=== PATIENT | male | born 1975 | race Caucasian/White ===

== ENCOUNTER 2017-04-16 06:42 | Inpatient (IN) ==
--- NOTE | 2017-04-16 07:04 | Emergency Department Note ---
Disposition Clinical Impression: Acalculous cholecystitis Disposition: Admitted As Inpatient Condition: Fair Time of Disposition: 11:11 Abdominal Pain HPI - General Chief Complaint: ED Abdominal Pain Stated Complaint: upper abd pain Time Seen by Provider: 04/16/17 06:47 Source: patient Mode of arrival: ambulatory Limitations: no limitations Nursing Notes Reviewed: Yes Vital Signs Reviewed: Yes - History of Present Illness HPI Narrative: Alert and oriented nontoxic-appearing 41-year-old male presents for evaluation of epigastric abdominal pain that awoke him from sleep at approximately 2:00 AM. The patient does state a history of acid reflux for which he takes omeprazole on a daily basis. He describes his pain as sharp and burning in nature. He rates it a 10 out of 10 on a 10 point scale. He denies any alleviating factors. This pain is made worsened by lying in a supine position. He denies any accompanying fever, chills, nausea, vomiting, diarrhea, hematochezia, melena, or hematemesis. He states that this pain has happened before however he cannot recollect as to the circumstances surrounding previous episodes. He does state that he ate a greasy meal for dinner last night before bed which consisted of pizza. He does still have his gallbladder. Pt Subjective Complaint: abdominal pain Onset (ago): hour(s) (0200) Consistency: Worsening Location: epigastric Pain Severity: severe Pain Scale: 10 Quality: sharp, burning Radiation: back Migration to: no migration Improves with: nothing Worsens with: nothing Associated symptoms: Denies: nausea, vomiting, diarrhea, fever, chills, constipation, dysuria, hematemesis, hematochezia, melena, hematuria Treatments prior to arrival: prescription analgesics - Related Data Home Medications Medication Instructions Recorded Confirmed Atorvastatin [Lipitor] 40 mg PO HS 04/16/17 04/16/17 BuPROPion XL (24 HR) [Wellbutrin 150 mg PO DAILY 04/16/17 04/16/17 XL] Docusate [Colace] 100 mg PO BID 04/16/17 04/16/17 HYDROcodone/Acet 10/325 mg [[place] 1 tab PO QID 04/16/17 04/16/17 10-325 mg] Lisinopril-HCTZ 10-12.5 [Prinzide 1 tab PO DAILY 04/16/17 04/16/17 10-12.5] Meloxicam [Meloxicam] 1 tab PO DAILY 04/16/17 04/16/17 Metformin HCl [Glucophage] 1,000 mg PO BID 04/16/17 04/16/17 Omeprazole [PriLOSEC] 20 mg PO BIDAC 04/16/17 04/16/17 Allergies Allergy/AdvReac Type Severity Reaction Status Date / Time No Known Allergies Allergy Verified 04/16/17 06:43 All systems ED: reviewed and negative except as stated. Constitutional: Denies: fever, chills, weakness, weight change Eyes: Denies: eye pain, eye discharge, vision change ENT ED: Denies: ear pain, throat pain, dental pain, hearing loss, epistaxis, congestion, dysphagia Cardiovascular: Denies: chest pain, palpitations, dyspnea on exertion, edema, syncope Respiratory: Denies: cough, dyspnea, wheezes, hemoptysis, stridor Gastrointestinal: Reports: as per HPI, abdominal pain. Denies: nausea, vomiting , diarrhea, constipation, hematemesis, melena, hematochezia Genitourinary: Denies: urgency, dysuria, frequency, hematuria Musculoskeletal: Denies: back pain, neck pain, arthralgia, myalgia Integumentary: Denies: rash, abrasion, lesions Neurological: Denies: headache, weakness, numbness, paresthesias, confusion, abnormal gait, vertigo Psychiatric: Denies: anxiety, depression, suicidal thoughts, homicidal thoughts , auditory hallucinations, visual hallucinations Endocrine: Denies: fatigue Hematological/Lymphatic: Denies: easy bleeding, easy bruising Allergic/Immunologic: Denies: facial swelling, urticaria Abdominal Pain PMH - Past Medical History Medical history: Reports: diabetes Male Surgical History: Reports: no surgical history Psychiatric history: Reports: anxiety - Social History Smoking status: Current every day smoker Alcohol use: Reports: none Drug use: Reports: none Physical Exam - General Limitations: no limitations General appearance: alert, in no apparent distress - Head Head exam: atraumatic, normocephalic, normal inspection - Eye Eye exam: Present: normal appearance, PERRL, EOMI. Absent: nystagmus - ENT ENT exam: mucous membranes moist - Neck Neck exam: Present: normal inspection, full ROM - Chest Chest inspection: Present: normal inspection, symmetric chest wall rise - Respiratory Respiratory exam: Present: normal lung sounds bilaterally. Absent: respiratory distress, wheezes, stridor, accessory muscle use, prolonged expiratory phase - Cardiovascular Cardiovascular exam: Present: regular rate, normal rhythm, normal heart sounds - Abdominal Exam Abdominal exam: Present: soft, tenderness, guarding, normal bowel sounds, Ghosh 's sign. Absent: distention, rebound, rigidity, organomegaly, Rovsing's sign, tenderness at McBurney's Point, mass, pulsatile mass Abdominal tenderness: Present: LUQ, epigastrium, severe - Extremities Exam Extremities exam: Present: normal inspection, full ROM. Absent: tenderness, pedal edema - Neurological Exam Neurological exam: Present: alert, oriented X3 - Psychiatric Psychiatric exam: Present: normal affect, normal mood - Skin Skin exam: Present: warm, dry, intact, normal color Course Course Narrative: 1100: I spoke with Dr. obando, general surgeon director of vocational training. He recommends the patient be started on Zosyn, 3.375 g every 8 hours IV piggyback. He asks that the patient be admitted to the hospitalist service and that he will consult for further evaluation of his acalculous cholecystitis. 1117: I spoke with Dr. Rosado, hospitalist director of vocational training. Dr. Rosado has accepted the patient for admission under his services with general surgery consultation. I discussed this case with Dr. Garcia, ED attending. Dr. Garcia agrees with this plan. Vital Signs Temperature 97.5 F L 04/16/17 06:44 Pulse Rate 79 04/16/17 06:44 Respiratory Rate 18 04/16/17 06:44 Blood Pressure 142/86 04/16/17 06:44 O2 Sat by Pulse Oximetry 98 04/16/17 06:44 Temperature 97.5 F L 04/16/17 06:44 Pulse Rate 78 04/16/17 07:30 Respiratory Rate 18 04/16/17 07:30 Blood Pressure 135/82 04/16/17 07:30 O2 Sat by Pulse Oximetry 97 04/16/17 07:30 Oxygen Delivery Oxygen Delivery Room Air Abdominal Pain - Medical Records Medical records reviewed: Yes I reviewed the patient's medical records. - Lab Data Lab results reviewed: Yes I reviewed the patient's lab results. Lab results narrative: Laboratory Last Values WBC 17.5 K/mcL (4.3-11.1) H 04/16/17 07:15 RBC 5.25 M/mcL (4.19-5.50) 04/16/17 07:15 Hgb 15.7 g/dL (12.9-16.9) 04/16/17 07:15 Hct 47.2 % (37.5-50.1) 04/16/17 07:15 MCV 89.9 fL (83.0-100.0) 04/16/17 07:15 MCH 29.9 pg (28.0-33.3) 04/16/17 07:15 MCHC 33.3 g/dL (31.6-35.5) 04/16/17 07:15 RDW 12.5 % (11.5-14.5) 04/16/17 07:15 Plt Count 278 K/mcL (140-400) 04/16/17 07:15 MPV 9.7 fL (9.4-12.4) 04/16/17 07:15 Immature Gran % 0.4 % (0-4) 04/16/17 07:15 Seg Neutrophils % 84.0 % 04/16/17 07:15 Lymphocytes % 9.2 % 04/16/17 07:15 Monocytes % 4.4 % 04/16/17 07:15 Eosinophils % 1.7 % 04/16/17 07:15 Basophils % 0.3 % 04/16/17 07:15 Neutrophils # 14.7 K/mcL (1.6-8.9) H 04/16/17 07:15 Lymphocytes # 1.6 K/mcL (0.6-4.6) 04/16/17 07:15 Monocytes # 0.8 K/mcL (0.0-1.3) 04/16/17 07:15 Eosinophils # 0.3 K/mcL (0.0-0.6) 04/16/17 07:15 Basophils # 0.1 K/mcL (0.0-0.2) 04/16/17 07:15 PT 10.4 Seconds (9.4-12.1) 04/16/17 07:15 INR 1.0 04/16/17 07:15 APTT 29.5 Seconds (26.0-36.0) 04/16/17 07:15 D-Dimer 779 ng/mLFEU (0-500) H 04/16/17 07:15 Sodium 135 mEq/L (136-145) L 04/16/17 07:15 Potassium 4.0 mEq/L (3.5-5.1) 04/16/17 07:15 Chloride 103 mEq/L (98-107) 04/16/17 07:15 Carbon Dioxide 26 mEq/L (23-29) 04/16/17 07:15 BUN 13 mg/dL (6-20) 04/16/17 07:15 Creatinine 0.85 mg/dL (0.70-1.30) 04/16/17 07:15 Est GFR ( Amer) > 60 (> 60) 04/16/17 07:15 Est GFR (Non-Af Amer) > 60 (> 60) 04/16/17 07:15 BUN/Creatinine Ratio 15 (6-26) 04/16/17 07:15 Glucose 159 mg/dL (70-105) H 04/16/17 07:15 Calculated Osmolality 283 (280-300) 04/16/17 07:15 Lactic Acid 1.7 mmol/L (0.5-2.2) 04/16/17 07:15 Calcium 10.6 mg/dL (8.6-10.3) H 04/16/17 07:15 Total Bilirubin 0.4 mg/dL (0.3-1.0) 04/16/17 07:15 Direct Bilirubin 0.1 mg/dL (0.0-0.2) 04/16/17 07:15 Indirect Bilirubin 0.3 mg/dL (0.0-1.2) 04/16/17 07:15 AST 11 Units/L (13-39) L 04/16/17 07:15 ALT 47 Units/L (7-52) 04/16/17 07:15 Alkaline Phosphatase 112 Units/L (34-104) H 04/16/17 07:15 Troponin I < 0.03 ng/mL (< 0.04) 04/16/17 07:15 Serum Total Protein 7.1 g/dL (6.4-8.9) 04/16/17 07:15 Albumin 4.4 g/dL (3.5-5.7) 04/16/17 07:15 Globulin 2.7 g/dL (2.4-3.5) 04/16/17 07:15 Albumin/Globulin Ratio 1.6 (1.1-2.2) 04/16/17 07:15 Amylase 26 Units/L (29-103) L 04/16/17 07:15 Lipase 10 Units/L (11-82) L 04/16/17 07:15 Urine Color Yellow (Yellow) 04/16/17 07:03 Urine Clarity Clear (Clear) 04/16/17 07:03 Urine pH 6.5 pH Units (5.0-8.0) 04/16/17 07:03 Ur Specific [place] 1.030 (1.010-1.025) H 04/16/17 07:03 Urine Protein Negative mg/dL (Neg-Trace) 04/16/17 07:03 Urine Glucose (UA) Normal mg/dL (Normal) 04/16/17 07:03 Urine Ketones Negative mg/dL (Negative) 04/16/17 07:03 Urine Blood Negative (Negative) 04/16/17 07:03 Urine Nitrite Negative (Negative) 04/16/17 07:03 Urine Bilirubin Negative (Negative) 04/16/17 07:03 Urine Urobilinogen Normal mg/dL (Normal) 04/16/17 07:03 Ur Leukocyte Esterase Negative (Negative) 04/16/17 07:03 Ur Culture Indicated? NO (NO) 04/16/17 07:03 Result diagrams: 04/16/17 07:15 04/16/17 07:15 Lab Results 04/16/17 04/16/17 04/16/17 Range/Units 07:03 07:15 07:15 WBC 17.5 H (4.3-11.1) K/mcL RBC 5.25 (4.19-5.50) M/mcL Hgb 15.7 (12.9-16.9) g/dL Hct 47.2 (37.5-50.1) % MCV 89.9 (83.0-100.0) fL MCH 29.9 (28.0-33.3) pg MCHC 33.3 (31.6-35.5) g/dL RDW 12.5 (11.5-14.5) % Plt Count 278 (140-400) K/mcL MPV 9.7 (9.4-12.4) fL Immature Gran % 0.4 (0-4) % Seg Neutrophils % 84.0 % Lymphocytes % 9.2 % Monocytes % 4.4 % Eosinophils % 1.7 % Basophils % 0.3 % Neutrophils # 14.7 H (1.6-8.9) K/mcL Lymphocytes # 1.6 (0.6-4.6) K/mcL Monocytes # 0.8 (0.0-1.3) K/mcL Eosinophils # 0.3 (0.0-0.6) K/mcL Basophils # 0.1 (0.0-0.2) K/mcL PT 10.4 (9.4-12.1) Seconds INR 1.0 APTT 29.5 (26.0-36.0) Seconds D-Dimer 779 H (0-500) ng/mLFEU Sodium (136-145) mEq/L Potassium (3.5-5.1) mEq/L Chloride (98-107) mEq/L Carbon Dioxide (23-29) mEq/L BUN (6-20) mg/dL Creatinine (0.70-1.30) mg/dL Est GFR ( Amer) (> 60) Est GFR (Non-Af Amer) (> 60) BUN/Creatinine Ratio (6-26) Glucose (70-105) mg/dL Calculated Osmolality (280-300) Lactic Acid (0.5-2.2) mmol/L Calcium (8.6-10.3) mg/dL Total Bilirubin (0.3-1.0) mg/dL Direct Bilirubin (0.0-0.2) mg/dL Indirect Bilirubin (0.0-1.2) mg/dL AST (13-39) Units/L ALT (7-52) Units/L Alkaline Phosphatase (34-104) Units/L Troponin I (< 0.04) ng/mL Serum Total Protein (6.4-8.9) g/dL Albumin (3.5-5.7) g/dL Globulin (2.4-3.5) g/dL Albumin/Globulin Ratio (1.1-2.2) Amylase (29-103) Units/L Lipase (11-82) Units/L Urine Color Yellow (Yellow) Urine Clarity Clear (Clear) Urine pH 6.5 (5.0-8.0) pH Units Ur Specific [place] 1.030 H (1.010-1.025) Urine Protein Negative (Neg-Trace) mg/dL Urine Glucose (UA) Normal (Normal) mg/dL Urine Ketones Negative (Negative) mg/dL Urine Blood Negative (Negative) Urine Nitrite Negative (Negative) Urine Bilirubin Negative (Negative) Urine Urobilinogen Normal (Normal) mg/dL Ur Leukocyte Esterase Negative (Negative) Ur Culture Indicated? NO (NO) 04/16/17 04/16/17 04/16/17 Range/Units 07:15 07:15 07:15 WBC (4.3-11.1) K/mcL RBC (4.19-5.50) M/mcL Hgb (12.9-16.9) g/dL Hct (37.5-50.1) % MCV (83.0-100.0) fL MCH (28.0-33.3) pg MCHC (31.6-35.5) g/dL RDW (11.5-14.5) % Plt Count (140-400) K/mcL MPV (9.4-12.4) fL Immature Gran % (0-4) % Seg Neutrophils % % Lymphocytes % % Monocytes % % Eosinophils % % Basophils % % Neutrophils # (1.6-8.9) K/mcL Lymphocytes # (0.6-4.6) K/mcL Monocytes # (0.0-1.3) K/mcL Eosinophils # (0.0-0.6) K/mcL Basophils # (0.0-0.2) K/mcL PT (9.4-12.1) Seconds INR APTT (26.0-36.0) Seconds D-Dimer (0-500) ng/mLFEU Sodium 135 L (136-145) mEq/L Potassium 4.0 (3.5-5.1) mEq/L Chloride 103 (98-107) mEq/L Carbon Dioxide 26 (23-29) mEq/L BUN 13 (6-20) mg/dL Creatinine 0.85 (0.70-1.30) mg/dL Est GFR ( Amer) > 60 (> 60) Est GFR (Non-Af Amer) > 60 (> 60) BUN/Creatinine Ratio 15 (6-26) Glucose 159 H (70-105) mg/dL Calculated Osmolality 283 (280-300) Lactic Acid 1.7 (0.5-2.2) mmol/L Calcium 10.6 H (8.6-10.3) mg/dL Total Bilirubin 0.4 (0.3-1.0) mg/dL Direct Bilirubin 0.1 (0.0-0.2) mg/dL Indirect Bilirubin 0.3 (0.0-1.2) mg/dL AST 11 L (13-39) Units/L ALT 47 (7-52) Units/L Alkaline Phosphatase 112 H (34-104) Units/L Troponin I < 0.03 (< 0.04) ng/mL Serum Total Protein 7.1 (6.4-8.9) g/dL Albumin 4.4 (3.5-5.7) g/dL Globulin 2.7 (2.4-3.5) g/dL Albumin/Globulin Ratio 1.6 (1.1-2.2) Amylase 26 L (29-103) Units/L Lipase 10 L (11-82) Units/L Urine Color (Yellow) Urine Clarity (Clear) Urine pH (5.0-8.0) pH Units Ur Specific [place] (1.010-1.025) Urine Protein (Neg-Trace) mg/dL Urine Glucose (UA) (Normal) mg/dL Urine Ketones (Negative) mg/dL Urine Blood (Negative) Urine Nitrite (Negative) Urine Bilirubin (Negative) Urine Urobilinogen (Normal) mg/dL Ur Leukocyte Esterase (Negative) Ur Culture Indicated? (NO) - Radiology Data Radiology results reviewed: Yes I reviewed the patient's radiology results. Laboratory Last Values WBC 17.5 K/mcL (4.3-11.1) H 04/16/17 07:15 RBC 5.25 M/mcL (4.19-5.50) 04/16/17 07:15 Hgb 15.7 g/dL (12.9-16.9) 04/16/17 07:15 Hct 47.2 % (37.5-50.1) 04/16/17 07:15 MCV 89.9 fL (83.0-100.0) 04/16/17 07:15 MCH 29.9 pg (28.0-33.3) 04/16/17 07:15 MCHC 33.3 g/dL (31.6-35.5) 04/16/17 07:15 RDW 12.5 % (11.5-14.5) 04/16/17 07:15 Plt Count 278 K/mcL (140-400) 04/16/17 07:15 MPV 9.7 fL (9.4-12.4) 04/16/17 07:15 Immature Gran % 0.4 % (0-4) 04/16/17 07:15 Seg Neutrophils % 84.0 % 04/16/17 07:15 Lymphocytes % 9.2 % 04/16/17 07:15 Monocytes % 4.4 % 04/16/17 07:15 Eosinophils % 1.7 % 04/16/17 07:15 Basophils % 0.3 % 04/16/17 07:15 Neutrophils # 14.7 K/mcL (1.6-8.9) H 04/16/17 07:15 Lymphocytes # 1.6 K/mcL (0.6-4.6) 04/16/17 07:15 Monocytes # 0.8 K/mcL (0.0-1.3) 04/16/17 07:15 Eosinophils # 0.3 K/mcL (0.0-0.6) 04/16/17 07:15 Basophils # 0.1 K/mcL (0.0-0.2) 04/16/17 07:15 PT 10.4 Seconds (9.4-12.1) 04/16/17 07:15 INR 1.0 04/16/17 07:15 APTT 29.5 Seconds (26.0-36.0) 04/16/17 07:15 D-Dimer 779 ng/mLFEU (0-500) H 04/16/17 07:15 Sodium 135 mEq/L (136-145) L 04/16/17 07:15 Potassium 4.0 mEq/L (3.5-5.1) 04/16/17 07:15 Chloride 103 mEq/L (98-107) 04/16/17 07:15 Carbon Dioxide 26 mEq/L (23-29) 04/16/17 07:15 BUN 13 mg/dL (6-20) 04/16/17 07:15 Creatinine 0.85 mg/dL (0.70-1.30) 04/16/17 07:15 Est GFR ( Amer) > 60 (> 60) 04/16/17 07:15 Est GFR (Non-Af Amer) > 60 (> 60) 04/16/17 07:15 BUN/Creatinine Ratio 15 (6-26) 04/16/17 07:15 Glucose 159 mg/dL (70-105) H 04/16/17 07:15 Calculated Osmolality 283 (280-300) 04/16/17 07:15 Lactic Acid 1.7 mmol/L (0.5-2.2) 04/16/17 07:15 Calcium 10.6 mg/dL (8.6-10.3) H 04/16/17 07:15 Total Bilirubin 0.4 mg/dL (0.3-1.0) 04/16/17 07:15 Direct Bilirubin 0.1 mg/dL (0.0-0.2) 04/16/17 07:15 Indirect Bilirubin 0.3 mg/dL (0.0-1.2) 04/16/17 07:15 AST 11 Units/L (13-39) L 04/16/17 07:15 ALT 47 Units/L (7-52) 04/16/17 07:15 Alkaline Phosphatase 112 Units/L (34-104) H 04/16/17 07:15 Troponin I < 0.03 ng/mL (< 0.04) 04/16/17 07:15 Serum Total Protein 7.1 g/dL (6.4-8.9) 04/16/17 07:15 Albumin 4.4 g/dL (3.5-5.7) 04/16/17 07:15 Globulin 2.7 g/dL (2.4-3.5) 04/16/17 07:15 Albumin/Globulin Ratio 1.6 (1.1-2.2) 04/16/17 07:15 Amylase 26 Units/L (29-103) L 04/16/17 07:15 Lipase 10 Units/L (11-82) L 04/16/17 07:15 Urine Color Yellow (Yellow) 04/16/17 07:03 Urine Clarity Clear (Clear) 04/16/17 07:03 Urine pH 6.5 pH Units (5.0-8.0) 04/16/17 07:03 Ur Specific [place] 1.030 (1.010-1.025) H 01/18/18 07:03 Urine Protein Negative mg/dL (Neg-Trace) 04/16/17 07:03 Urine Glucose (UA) Normal mg/dL (Normal) 04/16/17 07:03 Urine Ketones Negative mg/dL (Negative) 04/16/17 07:03 Urine Blood Negative (Negative) 04/16/17 07:03 Urine Nitrite Negative (Negative) 04/16/17 07:03 Urine Bilirubin Negative (Negative) 04/16/17 07:03 Urine Urobilinogen Normal mg/dL (Normal) 04/16/17 07:03 Ur Leukocyte Esterase Negative (Negative) 04/16/17 07:03 Ur Culture Indicated? NO (NO) 04/16/17 07:03 - EKG Data EKG attestation: Yes I reviewed and interpreted this EKG. EKG results narrative: EKG reviewed by Dr. Garcia as well. EKG shows a sinus rhythm with borderline left axis deviation and possible left ventricular hypertrophy at a rate of 77 beats per minute. OH interval 147, QRS duration 98, QT/QTc interval 343/375. No ectopy noted. No STEMI. No significant changes when compared to an EKG dated from 09/17/12. Attestation Statement - Attestation Attestation: 41-year-old male presents to the view his right upper quadrant abdominal pain. He will this morning with pain in his upper abdomen which is been persistent. No associated fever. Does complain of nausea. No chest pain or dyspnea. He has had similar but less intense pain in the past. Generally well-appearing male in no apparent physiologic distress. He is awake , alert and talkative. Oropharynx clear, mucous membranes are moist. Chest is clear to auscultation bilaterally. Abdomen soft, bowel sounds normal. Tenderness throughout the epigastrium and right upper quadrant. Extremities warm and dry without edema. CT of the abdomen was negative for any acute process. Her ultrasound was consistent with acalculous cholecystitis. Moderate leukocytosis with white count 17,000. Case was discussed with on-call surgery who recommended IV Zosyn and admission to the medical service.
[2017-04-16] MEDS ORDERED: *HR* Morphine 2 MG/ML SYRINGE IVP ONE ×2 (07:18→11:00)
[2017-04-16 07:26] LABS: Bilirubin,Urine Negative (Negative); Blood,Urine Negative (Negative); Clarity,Urine Clear (Clear); Color,Urine Yellow (Yellow); Glucose,Urine (UA) Normal (Normal); Ketones,Urine Negative (Negative); Leukocyte Esterase,Urine Negative (Negative); Nitrite,Urine Negative (Negative); PH,Urine 6.5 pH Units (5.0-8.0); Protein,Urine Negative (Neg-Trace); Urobilinogen,Urine Normal (Normal)
[2017-04-16 07:27] LABS: Basophils # 0.1 K/mcL (0.0-0.2); Basophils % 0.3 %; Eosinophils # 0.3 K/mcL (0.0-0.6); Eosinophils % 1.7 %; Hematocrit 47.2 % (37.5-50.1); Hemoglobin 15.7 g/dL (12.9-16.9); Immature Granulocytes % 0.4 % (0-4); Lymphocytes # 1.6 K/mcL (0.6-4.6); Lymphocytes % 9.2 %; Mean Corpuscular HGB Conc 33.3 g/dL (31.6-35.5); Mean Corpuscular Hemoglobin 29.9 pg (28.0-33.3); Mean Corpuscular Volume 89.9 fL (83.0-100.0); Mean Platelet Volume 9.7 fL (9.4-12.4); Monocytes # 0.8 K/mcL (0.0-1.3); Monocytes % 4.4 %; Neutrophils # 14.7 K/mcL (1.6-8.9); Platelet Count 278 K/mcL (140-400); Red Blood Count 5.25 M/mcL (4.19-5.50); Red Cell Distribution Width 12.5 % (11.5-14.5)
[2017-04-16 07:33] LABS: Prothrombin Time 10.4 Seconds (9.4-12.1)
[2017-04-16 07:36] LABS: Activated Partial Thrombo Time 29.5 Seconds (26.0-36.0)
[2017-04-16 07:56] LABS: Alanine Aminotransferase 47 Units/L (7-52); Albumin 4.4 g/dL (3.5-5.7); Albumin/Globulin Ratio 1.6 (1.1-2.2); Alkaline Phosphatase 112 Units/L (34-104); Amylase 26 Units/L (29-103); Aspartate Amino Transferase 11 Units/L (13-39); BUN/Creatinine Ratio 15 (6-26); Bilirubin,Direct 0.1 mg/dL (0.0-0.2); Bilirubin,Indirect 0.3 mg/dL (0.0-1.2); Bilirubin,Total 0.4 mg/dL (0.3-1.0); Blood Urea Nitrogen 13 mg/dL (6-20); Calcium 10.6 mg/dL (8.6-10.3); Carbon Dioxide 26 mEq/L (23-29); Chloride 103 mEq/L (98-107); Globulin 2.7 g/dL (2.4-3.5); Glucose 159 mg/dL (70-105); Lipase 10 Units/L (11-82); Osmolality,Calculated 283 (280-300); Sodium 135 mEq/L (136-145); Total Protein 7.1 g/dL (6.4-8.9); eGFR For African Americans > 60 (> 60); eGFR For Non-African Americans > 60 (> 60)
[2017-04-16] MEDS ORDERED: Piperacillin/Tazobactam 3.375 GM in Water for inj. (sterile) 20 ML 20 ML IVP SCH (11:00)
[2017-04-16] MEDS ORDERED: 0.9 % Sodium Chloride 1,000 ML IVC ONE (11:02)
[2017-04-16] MEDS ORDERED: Water for inj. (sterile) 10 ML IV ONE (11:27)
[2017-04-16] MEDS: Nicotine 21 MG PATCH.TD24 TD SCH (12:23)
--- NOTE | 2017-04-16 12:44 | Event Note ---
Date of Encounter: 04/16/17 Time of Encounter: 12:42 Patient seen and examined with nurse practitioner. Presentation suggestive of biliary colic. There is some thickening of gall bladder wall and some pericholecystic fluid on imaging. Will get HIDA scan to confirm. Appreciates surgery input. Surgery team would like patient to be started on antibiotics and will follow that
[2017-04-16] MEDS ORDERED: Acetaminophen 325 MG TABLET PO PRN (13:24)
[2017-04-16] MEDS ORDERED: Naloxone 0.4 MG/ML INJ IVP PRN (13:24)
[2017-04-16] MEDS ORDERED: Ondansetron 4 MG/2 ML VIAL IVP PRN (13:24)
[2017-04-16] MEDS ORDERED: Dextrose Gel 15 GM/37.5 ML TUBE PO PRN ×2 (13:38)
[2017-04-16] MEDS ORDERED: D5% in Water 1,000 ML IVC PRN (13:38)
[2017-04-16] MEDS ORDERED: *HR* Dextrose 50 % in Water (Syg) 50 ML SYRINGE IVP PRN (13:38)
--- NOTE | 2017-04-16 13:48 | Internal Med History&Physical ---
Date of Encounter: 04/16/17 Time of Encounter: 13:00 Assessment and Plan (1) Acalculous cholecystitis Current visit: Yes Status: Acute Patient had sudden onset of epigastric pain radiating to right upper quadrant tenderness at McBurney's point, some leukocytosis at 17.5, all bladder ultrasound demonstrates thickening and pericolic fluid we will obtain a HIDA scan to confirm Surgery has been consult did contacted per ER physician-Dr. 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 Owen is a 41 year old male past medical history hypertension hyperlipidemia diabetes,GERD according to the patient he has been in his usual state of health when approximately 2 AM this morning he awoke with sudden onset of severe stabbing sharp burning epigastric pain which radiated to his right upper quadrant. He attempted to take some antacids thinking it was gas related without any relief the pain was made worse when he is lying down. He denies any associated symptoms of fevers chills nausea vomiting diarrhea hematochezia melena or hematemesis. Patient did consume a greasy meal before going to bed which consisted of pizza. He does have his gallbladder, he denies any recent history of similar events. He presented to the ER with the above complaints not work was obtained which did show some leukocytosis CT of gallbladder did reveal nonspecific gallbladder wall thickening and trace and trace pericholecystic fluid. ER physician did speak with surgeon who advised initiating antibiotics and would see patient up on consult. Patient has been admitted for further workup and evaluation. Presently patient is hemodynamically stable and denies any pain at this time. Did review this case with Dr. Rosado who agree with plan Past Med Surg Social Fam HX - Past Medical History Medical history: arthritis, diabetes, GERD, hyperlipidemia, hypertension Psychiatric history: anxiety - Social History Smoking Status: Current every day smoker Packs per day: 1-2 Smokeless Tobacco Status: No Alcohol use: none Drug use: marijuana - Family History Mother Hx Family Medical Disorders: Yes (fibromyalgia) Brother Living Status: Hx Family Cardiac Disorders: Yes ([place]) Hx Family Medical Disorders: Yes ("blood disorder") Internal Medicine - H&P: Meds Atorvastatin [Lipitor] 40 mg PO HS 04/16/17 [History] BuPROPion XL (24 HR) [Wellbutrin XL] 150 mg PO DAILY 04/16/17 [History] Docusate [Colace] 100 mg PO BID 04/16/17 [History] HYDROcodone/Acet 10/325 mg [[place] 10-325 mg] 1 tab PO QID 04/16/17 [History] Lisinopril-HCTZ 10-12.5 [Prinzide 10-12.5] 1 tab PO DAILY 04/16/17 [History] Meloxicam [Meloxicam] 1 tab PO DAILY 04/16/17 [History] Metformin HCl [Glucophage] 1,000 mg PO BID 04/16/17 [History] Omeprazole [PriLOSEC] 20 mg PO BIDAC 04/16/17 [History] 3 Allergy/AdvReac Type Severity Reaction Status Date / Time No Known Allergies Allergy Verified 04/16/17 06:43 All Systems PM: A 10-system review of systems was performed and is negative for pertinent findings except as documented above in the HPI. - Constitutional Constitutional: no chills, no fever(s), no night sweats - EENT Eyes: no change in vision, no discharge, no pain, no photophobia Nose, mouth and throat: no dysphagia, no nasal discharge, no neck pain, no sore throat - Cardiovascular Cardiovascular ROS IM: no chest pain, no diaphoresis, no dyspnea, no lightheadedness, no palpitations, no syncope - Respiratory Respiratory: no cough, no dyspnea, no wheezing, no excessive phlegm production - Gastrointestinal Gastrointestinal: abdominal pain, nausea - Musculoskeletal Musculoskeletal ROS IM: no numbness, no tingling - Integumentary Integumentary IM: no rash, no unusual bruising - Neurological Neurological ROS: no confusion, no convulsions, no focal weakness, no numbness, no tingling, no tremor(s) - Hematologic/Lymphatic Hematologic/Lymphatic: no easy bruising - Constitutional Vitals: Temp Pulse Resp BP Pulse Ox 97.5 F L 78 18 135/82 97 04/16/17 06:44 04/16/17 07:30 04/16/17 07:30 04/16/17 07:30 04/16/17 12:45 General appearance: Present: A&O X 3 - Head Head exam: Present: atraumatic, normocephalic - Eye Eye exam: Present: PERRL, conjuntiva pink, sclera anicteric Pupils: Present: PERRL - Neck Neck exam general surgery: Present: supple, trachea midline. Absent: lymphadenopathy - Respiratory Respiratory exam: Present: CTAB. Absent: accessory muscle use, rales, rhonchi, wheezes - Cardiovascular Cardiovascular exam: Present: RRR, +S1, +S2. Absent: diastolic murmur, gallop, rubs, systolic murmur - GI/Abdominal GI/Abdominal exam: Present: normal bowel sounds, soft, tenderness, no peritoneal signs. Absent: distended - Expanded GI/Abdominal Exam GI/Abdominal exam expanded: Present: tenderness at McBurney's Point - Extremities Exam Extremities exam: Present: warm, radial pulses palpable and symmetrical. Absent : calf tenderness, cyanotic, pedal edema - Neurological Exam Neurological exam: Present: CN II-XII intact, oriented X3, no focal deficits. Absent: pronater drift, facial droop, speech deficit - Skin Skin exam: Present: dry, intact Internal Med - H&P Results - Labs CBC & Chem 7: 04/16/17 07:15 04/16/17 07:15 - Diagnostic Studies Other Images Additional comments: Abdomen/Pelvis CT 04/16/17 06:53 IMPRESSION: 1. Distended gallbladder with mild gallbladder wall thickening. Cholecystitis is not excluded. Consider correlation with right upper quadrant ultrasound if clinically indicated. 2. Nonobstructing 3 mm stone involving the lower pole of the left kidney. 3. Colonic diverticulosis. D/ / 04/16/2017 09:14:43 Luis Manuel Stevenson MD / [place] Interpreting Provider: Luis Manuel Stevenson MD Chest CTA 04/16/17 07:39 IMPRESSION: 1. No CT evidence of a pulmonary embolism. 2. No acute abnormality of the thoracic aorta. 3. Mild dependent atelectasis within the bilateral lower lobes without acute intrapulmonary findings. 4. There is a 5 mm noncalcified nodule within the right lower lobe. While this likely reflects a benign granuloma, further follow-up of this nodule is advised below. RECOMMENDATIONS: Fleischner Society guidelines for follow-up and management of incidentally detected pulmonary nodules: Single Solid Nodule: Nodule size less than 6 mm In a low-risk patient, no routine follow-up. In a high-risk patient, optional CT at 12 months. - Low risk patients include individuals with minimal or absent history of smoking and other known risk factors. - High risk patients include individuals with a history or smoking or known risk factors. Radiology 2017 http://pubs.rsna.org/doi/full/10.1148/[email or web address] D/ / 04/16/2017 09:15:43 Pro Britt MD / [place] Interpreting Provider: Pro Britt MD Gallbladder Ultrasound 04/16/17 09:14 IMPRESSION: 1. Nonspecific gallbladder wall thickening and trace pericholecystic fluid could be related to acalculous cholecystitis. Correlation with HIDA scan may be useful. 2. Hepatic steatosis. D/ / Reinier Godoy / Reinier Godoy Interpreting Provider: Reinier Godoy
[2017-04-16] MEDS: *HR* Morphine 2 MG/ML SYRINGE IVP PRN ×2 (14:47→20:23)
[2017-04-16] MEDS: 0.9 % Sodium Chloride 1,000 ML IVC SCH (16:41)
[2017-04-16] MEDS: Insulin LISPRO 300 UNITS/3 ML VIAL SQ SCH (19:22)
--- NOTE | 2017-04-16 19:35 | General Surgery Consult Note ---
Date of Encounter: 04/16/17 Time of Encounter: 18:20 History of Present Illness Reason for consult: abdominal pain (acute cholecystitis) Requesting physician: Xavi Gurrola History of present illness: 41-year-old male referred for furthre surgical evaluation after presenting today to [facility] ED with abrupt onset epigastric abdominal pain that awakened him from sleep approximately 0200 hrs. this morning. The pain apparently has progressed in severity and the patient is complaining of right upper quadrant abdominal tenderness along with the epigastric tenderness. The patient induced vomiting without symptomatic relief. He presents to the emergency department for further evaluation and treatment. Patient gives a history of gastroesophageal reflux disease but this is "new pain". Patient describes several previous episodes of similar pain but not as severe. Not associated with fevers, chills, jaundice, nausea or vomiting. Past medical history: Diabetes; generalized anxiety; chronic back pain Surgical history: Tonsillectomy in the remote past Allergies: No known drug allergies Medications: Atorvastatin 40 mg by mouth daily at bedtime Bupropion 150 mg by mouth daily Docusate 100 mg by mouth twice a day Hydrocodone 10/325 one by mouth 4 times a day for back pain Lisinopril with hydrochlorothiazide 10/12.5 mg 1 by mouth daily Meloxicam 1 by mouth daily Metformin 1000 mg by mouth twice a day Omeprazole 20 mg by mouth twice a day Social history: Patient is , lives at home with his spouse and children; patient describes himself as disabled. The patient has smoked since the age of 19 (23 years) proximal one pack per day; he admits to rare alcoholic intake, denies any illicit drug use Physical exam: Appropriate male resting comfortably in his hospital bed. He appears to be in no acute distress. He is 2.01 m tall, 136.08 kg, BMI 33.8 The patient is afebrile, 98.9; pulse 78-103, respirations 18-21, blood pressure 127/78 to 135/82 Skin: Warm, no obvious jaundice Lungs: Clear to auscultation, no obvious pain and deep inspiration Cardiac: Rate on my exam was regular without obvious murmurs Abdomen: Soft with tenderness right upper quadrant. Gallbladder was not palpable; no detectable hepatosplenomegaly. No rebound Hypoactive bowel sounds Extremities: Without clubbing, cyanosis, or edema Laboratories: Leukocytosis of 17.5, hemoglobin 15.7 with hematocrit 47.2; differential notable for neutrophilia of 14.7% Sodium 135, other electrolytes, BUN, creatinine within normal limits. Alkaline phosphatase elevated at 112; bilirubin 0.4, AST 11, ALT 47. Amylase 26, lipase 10. CT and ultrasound gallbladder were personally reviewed with [facility]. CT demonstrated mild gallbladder wall thickening without identified calcified stones. The gallbladder was mildly distended. Moderate colonic diverticulosis noted most prominently involving the descending and sigmoid colon. No acute diverticulitis identified. Moderate multilevel degenerative disc disease and facet joint osteoarthritis throughout the lumbar spine as well as lower thoracic spine. Moderate osteoarthritis involving both hips. Sonogram of the gallbladder demonstrated increased hepatic echogenicity consistent with hepatic steatosis; the gallbladder did not appear distended but pericholecystic fluid with nonspecific wall thickening was identified. No definite stones were identified. The sonographic Ghosh sign was described as negative. Common bile duct measured thin normal limits, 3-4 mm. Impression: Clinical and radiologic findings are consistent with acute cholecystitis. Wall thickening and pericholecystic fluid without associated cholelithiasis is somewhat unusual but my review of the imaging with [facility] corroborated the radiologic findings which corrolate to the physical findings. The patient is currently comfortable using morphine for pain control. The patient was in NAD at the time of my exam but tender in the RUQ. I have recommended cholecystectomy if the patient's symptoms persist through the night. The patient is a reasonable candidate for laparoscopic cholecystectomy but understands that an open cholecystectomy may become necessary. Risks of surgery include hemorrhage, infection, intra-abdominal abscess, bile leak, injury to adjacent ducts, vessels, organs, or bowel. Postcholecystectomy diarrhea may develop. The patient may also continue to be symptomatic despite cholecystectomy. The patient expressed understanding and is willing to proceed with cholecystectomy if his symptoms persist through the night. Thank you for this consultation. I will follow along with you. Past Med Surg Social Fam HX - Past Medical History Medical history: arthritis, diabetes, GERD, hyperlipidemia, hypertension Psychiatric history: anxiety - Social History Smoking Status: Current every day smoker Packs per day: 1-2 Smokeless Tobacco Status: No Alcohol use: none Drug use: marijuana - Family History Mother Hx Family Medical Disorders: Yes (fibromyalgia) Brother Living Status: Hx Family Cardiac Disorders: Yes ([place]) Hx Family Medical Disorders: Yes ("blood disorder") Medications and Allergies Atorvastatin [Lipitor] 40 mg PO HS 04/16/17 [History] BuPROPion XL (24 HR) [Wellbutrin XL] 150 mg PO DAILY 04/16/17 [History] Docusate [Colace] 100 mg PO BID 04/16/17 [History] HYDROcodone/Acet 10/325 mg [[place] 10-325 mg] 1 tab PO QID 04/16/17 [History] Lisinopril-HCTZ 10-12.5 [Prinzide 10-12.5] 1 tab PO DAILY 04/16/17 [History] Meloxicam [Meloxicam] 1 tab PO DAILY 04/16/17 [History] Metformin HCl [Glucophage] 1,000 mg PO BID 04/16/17 [History] Omeprazole [PriLOSEC] 20 mg PO BIDAC 04/16/17 [History] 3 Allergy/AdvReac Type Severity Reaction Status Date / Time No Known Allergies Allergy Verified 04/16/17 06:43 Review of Systems All systems PM: A 10-system review of systems was performed and is negative for pertinent findings except as documented above in the HPI. General Surgery Exam Initial Vital Signs Temp Pulse Resp BP Pulse Ox 97.5 F L 79 18 142/86 98 04/16/17 06:44 04/16/17 06:44 04/16/17 06:44 04/16/17 06:44 04/16/17 06:44 Exam Initial Vital Signs Temp Pulse Resp BP Pulse Ox 97.5 F L 79 18 142/86 98 04/16/17 06:44 04/16/17 06:44 04/16/17 06:44 04/16/17 06:44 04/16/17 06:44 Results - Labs 04/16/17 07:15 04/16/17 07:15 Abnormal lab results WBC 17.5 K/mcL (4.3-11.1) H 04/16/17 07:15 Neutrophils # 14.7 K/mcL (1.6-8.9) H 04/16/17 07:15 D-Dimer 779 ng/mLFEU (0-500) H 04/16/17 07:15 Sodium 135 mEq/L (136-145) L 04/16/17 07:15 Glucose 159 mg/dL (70-105) H 04/16/17 07:15 Calcium 10.6 mg/dL (8.6-10.3) H 04/16/17 07:15 AST 11 Units/L (13-39) L 04/16/17 07:15 Alkaline Phosphatase 112 Units/L (34-104) H 04/16/17 07:15 Amylase 26 Units/L (29-103) L 04/16/17 07:15 Lipase 10 Units/L (11-82) L 04/16/17 07:15 Ur Specific [place] 1.030 (1.010-1.025) H 04/16/17 07:03 All other labs normal. Consult Discharge Plan - Plan Referrals: Dalton Marte MD [Primary Care Provider] -
--- NOTE | 2017-04-16 19:49 | Anesthesia Evaluation PreOp ---
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: Other (anxiety, chronic back pain) Other Medical History: Diabetes Type II (oral medications), GERD Anesthesia History: Past Anesthesia (tonsillectomy) Alcohol Use: none Drug use: marijuana Medications and Allergies Atorvastatin [Lipitor] 40 mg PO HS 04/16/17 [History] BuPROPion XL (24 HR) [Wellbutrin XL] 150 mg PO DAILY 04/16/17 [History] Docusate [Colace] 100 mg PO BID 04/16/17 [History] HYDROcodone/Acet 10/325 mg [[place] 10-325 mg] 1 tab PO QID 04/16/17 [History] Lisinopril-HCTZ 10-12.5 [Prinzide 10-12.5] 1 tab PO DAILY 04/16/17 [History] Meloxicam [Meloxicam] 1 tab PO DAILY 04/16/17 [History] Metformin HCl [Glucophage] 1,000 mg PO BID 04/16/17 [History] Omeprazole [PriLOSEC] 20 mg PO BIDAC 04/16/17 [History] 3 Allergy/AdvReac Type Severity Reaction Status Date / Time No Known Allergies Allergy Verified 04/16/17 06:43 - Meds/Allergy Pre-op Review Medications Reviewed: Yes Allergies Reviewed: Yes Beta Blockers on Current Med List: No Anesthesia Results - Labs 04/17/17 06:03 04/17/17 06:03 - Imaging EKG: report reviewed, image reviewed (SR; borderline LAD; poss LVH) Anesthesia Exam Last Vital Signs Temp 98.9 F 04/16/17 16:13 Pulse 103 04/16/17 16:13 Resp 21 04/16/17 16:13 BP 127/78 04/16/17 16:13 Pulse Ox 97 04/16/17 16:13 Weight: 136 kg - HEENT Pupil (Motor): Pupils equal, EOMI Mallampati: III Teeth: Normal Oral Opening: Greater than 3 - SHEET HANGER LOC: Oriented - Cardiac Rhythm: Regular - Pulmonary Breath Sounds: bilateral Clear Respiratory Effort: Symmetrical Anesthesia Assess/Plan ASA Score: 3 Anesthetic Plan: General Monitoring Plan: Standard Monitors Recovery Plan: PACU
[2017-04-16] MEDS: Piperacillin/Tazobactam 3.375 GM/200 ML BAG IVPB SCH (22:05)
[2017-04-17] MEDS: *HR* Morphine 2 MG/ML SYRINGE IVP PRN ×4 (00:27→13:31)
[2017-04-17] MEDS: 0.9 % Sodium Chloride 1,000 ML IVC SCH (00:31)
[2017-04-17] MEDS: Insulin LISPRO 300 UNITS/3 ML VIAL SQ SCH ×3 (00:34→13:32)
[2017-04-17] MEDS: Piperacillin/Tazobactam 3.375 GM/200 ML BAG IVPB SCH (05:15)
[2017-04-17] MEDS ORDERED: *HR* Enoxaparin 40 MG/0.4 ML SYRINGE SQ SCH (06:00)
[2017-04-17 06:19] LABS: Basophils % 0.3 %; Eosinophils # 0.4 K/mcL (0.0-0.6); Eosinophils % 3.1 %; Hematocrit 42.1 % (37.5-50.1); Immature Granulocytes % 0.4 % (0-4); Lymphocytes # 2.2 K/mcL (0.6-4.6); Lymphocytes % 17.8 %; Mean Corpuscular Hemoglobin 30.4 pg (28.0-33.3); Mean Corpuscular Volume 92.1 fL (83.0-100.0); Mean Platelet Volume 9.8 fL (9.4-12.4); Monocytes # 1.2 K/mcL (0.0-1.3); Monocytes % 9.4 %; Neutrophils # 8.6 K/mcL (1.6-8.9); Platelet Count 217 K/mcL (140-400); Red Blood Count 4.57 M/mcL (4.19-5.50); Red Cell Distribution Width 12.8 % (11.5-14.5)
[2017-04-17 06:20] LABS: Hemoglobin 13.9 g/dL (12.9-16.9)
[2017-04-17 07:08] LABS: BUN/Creatinine Ratio 11 (6-26); Blood Urea Nitrogen 9 mg/dL (6-20); Calcium 9.2 mg/dL (8.6-10.3); Carbon Dioxide 26 mEq/L (23-29); Chloride 110 mEq/L (98-107); Chol/HDL Ratio 4.6 (0-4.9); Cholesterol 138 mg/dL (< 200); Glucose 114 mg/dL (70-105); HDL Cholesterol 30 mg/dL (40-59); LDL Cholesterol,Calculated 83 mg/dL (0-99); Magnesium 2.1 mg/dL (1.6-2.6); Osmolality,Calculated 286 (280-300); Potassium 4.1 mEq/L (3.5-5.1); Sodium 138 mEq/L (136-145); Triglycerides 125 mg/dL (< 150); eGFR For African Americans > 60 (> 60); eGFR For Non-African Americans > 60 (> 60)
--- NOTE | 2017-04-17 07:36 | Electrocardiograph Report ---
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
[2017-04-17] MEDS ORDERED: BuPROPion XL (24 HR) 150 MG TABLET PO SCH (09:00)
[2017-04-17] MEDS ORDERED: Pantoprazole 40 MG VIAL IVP SCH (09:00)
[2017-04-17] MEDS: Nicotine 21 MG PATCH.TD24 TD SCH (09:12)
[2017-04-17] MEDS ORDERED: *HR* LORazepam 2 MG/ML VIAL IVP PRN ×2 (09:56→21:06)
--- NOTE | 2017-04-17 10:55 | Internal Med Progress Note ---
<Merlin Franco - Last Filed: 04/17/17 13:41> Date of Encounter: 04/17/17 Time of Encounter: 10:54 - Assessment and plan (1) Acalculous cholecystitis Current Visit: Yes Status: Acute Assessment and plan: Patient is still symptomatic and per surgery, may have a cholecystectomy as he has been NPO since midnight He just returned from his HIDA scan, results are pending Educated patient on importance of lowering his fatty food intake Surgery recommended starting Zosyn, will continue (2) Diabetes mellitus Current Visit: No Status: Chronic Assessment and plan: Blood sugars well controlled so far Continue low dose SSI q6hr while NPO Qualifiers: Diabetes mellitus type: type 2 Diabetes mellitus complication status: without complication 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 He states he is still having abdominal pain in the RUQ but otherwise has no NVD. He states he is anxious to get his surgery and wants to go home GIANNA. - Constitutional Vitals: Temp Pulse Resp BP Pulse Ox 98.2 F 89 15 128/74 96 04/17/17 08:23 04/17/17 08:23 04/17/17 08:23 04/17/17 08:23 04/17/17 08:23 General appearance: Present: cooperative, pleasant, no acute distress, answers questions appropriately - Head Head exam: Present: atraumatic, normocephalic - Eye Eye exam: Present: PERRL, conjuntiva pink, sclera anicteric - Neck Neck exam general surgery: Present: supple, trachea midline. Absent: lymphadenopathy - Respiratory Respiratory exam: Present: CTAB. Absent: accessory muscle use, rales, rhonchi, wheezes - Cardiovascular Cardiovascular exam: Present: RRR, +S1, +S2. Absent: diastolic murmur, gallop, rubs, systolic murmur - GI/Abdominal GI/Abdominal exam: Present: normal bowel sounds, soft, tenderness (RUQ, positive Ghosh's), no peritoneal signs. Absent: distended - Extremities Exam Extremities exam: Present: warm, radial pulses palpable and symmetrical. Absent : calf tenderness, cyanotic, pedal edema - Neurological Exam Neurological exam: Present: alert, no focal deficits. Absent: facial droop, speech deficit - Skin Skin exam: Present: dry, intact Internal Medicine: Result - Labs CBC & Chem 7: 04/17/17 06:03 04/17/17 06:03 Labs: Short CBC 04/17/17 Range/Units 06:03 WBC 12.4 H (4.3-11.1) K/mcL Hgb 13.9 D (12.9-16.9) g/dL Hct 42.1 (37.5-50.1) % Plt Count 217 (140-400) K/mcL Neutrophils # 8.6 (1.6-8.9) K/mcL BMP 04/17/17 06:03 Sodium 138 Potassium 4.1 Chloride 110 H Carbon Dioxide 26 BUN 9 Creatinine 0.80 Glucose 114 H Calcium 9.2 - ABG Interpretation ABG results: PT/INR, D-dimer PT 10.4 Seconds (9.4-12.1) 04/16/17 07:15 D-Dimer 779 ng/mLFEU (0-500) H 04/16/17 07:15 Consult Discharge Plan - Plan Referrals: Dalton Marte MD [Primary Care Provider] - <George Tobin - Last Filed: 04/17/17 18:05> Date of Encounter: 04/17/17 - Constitutional Vitals: Temp Pulse Resp BP Pulse Ox 97.8 F 86 16 136/78 96 04/17/17 17:09 04/17/17 17:09 04/17/17 17:09 04/17/17 17:09 04/17/17 17:09 Internal Medicine: Result - Labs CBC & Chem 7: 04/17/17 06:03 04/17/17 06:03 Labs: Short CBC 04/17/17 Range/Units 06:03 WBC 12.4 H (4.3-11.1) K/mcL Hgb 13.9 D (12.9-16.9) g/dL Hct 42.1 (37.5-50.1) % Plt Count 217 (140-400) K/mcL Neutrophils # 8.6 (1.6-8.9) K/mcL BMP 04/17/17 06:03 Sodium 138 Potassium 4.1 Chloride 110 H Carbon Dioxide 26 BUN 9 Creatinine 0.80 Glucose 114 H Calcium 9.2 - ABG Interpretation ABG results: PT/INR, D-dimer PT 10.4 Seconds (9.4-12.1) 04/16/17 07:15 D-Dimer 779 ng/mLFEU (0-500) H 04/16/17 07:15 - Impressions Impressions Bile Acid Absorption NM 04/17/17 10:00 IMPRESSION: 1. Patency of the cystic duct and common bile duct. No evidence of acute cholecystitis. D/ / Ishmael Cazares MD / Ishmael Cazares MD Interpreting Provider: Ishmael Cazares MD - Attending Attestation I conducted a face to face diagnostic evaluation of this patient and my medical decision-making was reviewed with the Resident Physician. I agree with the documented findings, disposition and treatment plan as described except to the extent set forth below: Patient is in no acute distress. Abdomen soft, tender to palpation in the right upper quadrant, no rebound. Gallbladder ultrasound with evidence of cholecystitis and ultrasounds. Plan: Appreciate general surgery recommendations. Plan for cholecystectomy this afternoon. Pain not well controlled with current dose of IV morphine. I will increase to 4 mg of morphine every 4 hours. The patient is at high risk for morbidity mortality and complications due to treatment with IV controlled substances. George Tobin MD
[2017-04-17] MEDS ORDERED: *HR* Morphine 2 MG/ML SYRINGE IVP PRN (13:54)
[2017-04-17] MEDS ORDERED: Albuterol 2.5 MG/3 ML NEBULIZER IH ONE (18:08)
[2017-04-17] MEDS ORDERED: *HR* Propofol 200 MG/20 ML VIAL IVP ONE ×2 (18:21→18:47)
[2017-04-17] MEDS ORDERED: *HR* Midazolam HCl 2 MG/2 ML VIAL ONE (18:21)
[2017-04-17] MEDS ORDERED: *HR* Rocuronium Bromide 50 MG/5 ML VIAL ONE (18:21)
[2017-04-17] MEDS ORDERED: Lidocaine -MPF 2% 2 ML VIAL ONE ×3 (18:21→18:52)
[2017-04-17] MEDS ORDERED: Ondansetron 4 MG/2 ML VIAL ONE (18:21)
[2017-04-17] MEDS ORDERED: *HR* FentaNYL (PF) 100 MCG/2 ML VIAL ONE (18:21)
[2017-04-17] MEDS ORDERED: Ketamine *HR* 500 MG/10 ML MDV ONE (18:23)
[2017-04-17] MEDS ORDERED: Acetaminophen IV 1,000 MG/100 ML INFUS..BTL ONE (18:36)
[2017-04-17] MEDS ORDERED: *HR* EPINEPHrine 30 MG/30 ML MDV ONE (18:37)
[2017-04-17] MEDS ORDERED: *HR* Promethazine 25 MG/ML VIAL IVP PRN (19:17)
[2017-04-17] MEDS ORDERED: *HR* HYDROmorphone (PF) 1 MG/ML SYRINGE IVP PRN (19:17)
[2017-04-17] MEDS ORDERED: *HR* HYDROmorphone 2 MG/ML SYRINGE ONE (19:31)
[2017-04-17] MEDS ORDERED: Neostigmine Methylsulfate 3 MG/3 ML SYRINGE ONE (19:42)
--- NOTE | 2017-04-17 20:15 | Operative Note ---
Date of procedure: 04/17/17 Pre-op diagnosis: Right upper quadrant abdominal pain, cholecystitis Post-op diagnosis: same Procedure: Laparoscopic cholecystectomy Complications: None apparent Anesthesia: GETA Local Anesthetics: 0.25% Sensorcaine HCL SubQ (cc) (20mL (18mL 0.25% bupivicaine with 2 mL epinephrine 1 mg/mL)) Surgeon: Amari Rodriguez Was there an agency sales management assistant present: No Estimated blood loss (cc): 150 IV fluids (cc): 1,600 Specimen: gallbladder Condition: stable Disposition: PACU Procedure in Detail: The patient was brought to the operating room where he was placed supine upon the operating table. Patient was continuing to complain of right upper quadrant abdominal pain. The patient was appropriately identified as to person and procedure. The accuracy of this information was confirmed by the patient and the procedure team. This surgical consent was reviewed and found to be accurate. The patient was then intubated and anesthetized under the supervision of Dr. Tae Nogueira. The abdomen was prepped and draped in usual sterile fashion. Several milliliters of a 0.25% bupivacaine with epinephrine mixture (18 mL 0.25% bupivacaine with 2 mL epinephrine 1 mg/mL) was infiltrated into the infraumbilical skin. A small transverse incision was made. Dissection was carried to the fascia. The fascia was grasped and elevated. Additional bupivacaine with epinephrine was infiltrated. The fascia was then incised. An 11 mm Xcel port was established. The rigid laparoscope was placed within the obturator to visualize passage through the layers to the anterior abdominal wall. Within the abdominal cavity was accessed, the obturator was replaced by the rigid laparoscope, the abdomen was insufflated with gaseous carbon dioxide. There was no obvious visible injury from establishing the port. Under direct visualization 3 additional ports were placed along the right costal margin in the subxiphoid, midclavicular, and anterior axillary line. Each site was infiltrated with the bupivacaine with epinephrine mixture. Gallbladder was tensely distended and mildly edematous. It was necessary to aspirate approximately 100 mL dark turbid bile to decompress the gallbladder to effectively grasp and retract the gallbladder. The hepatoduodenal ligament was dissected, the cystic duct was skeletonized. The cystic duct was clipped near the infundibulum of the gallbladder as well as twice distally. The cystic artery was identified, clipped twice proximally and once distally. The cystic duct was transected as was the cystic artery. The gallbladder was dissected from from the liver bed using the Ethicon harmonic sumaya. A significant portion of the gallbladder literally "peeled off the liver bed". The gallbladder was from the liver bed it was placed in endoscopic pouch and extracted through the infraumbilical opening. The gallbladder was retrieved and sent to pathology. The liver bed demonstrated some accumulated blood. Aspiration yielded approximately 150 mL sanguinous fluid. Hemostasis was achieved by application of Waldemar once the bloody fluid was aspirated. When hemostasis was deemed adequate, the pneumoperitoneum was evacuated, the instrumentation removed. The fascia of the infra umbilical opening was closed with interrupted [id number] 0 Vicryl using S retractors. The skin edges of the port sites were approximated with subcuticular 4-0 Vicryl. The incisions were sealed with Dermabond dermal adhesive. The patient was taken to recovery in stable condition. Needle, sponge, and instrument counts were correct at the close of the case. Total volume of 0.25% bupivacaine with epinephrine, 20 mL.
[2017-04-17] MEDS ORDERED: Ringers Solution, Lactated 1,000 ML ONE (20:29)
[2017-04-17] MEDS ORDERED: Ringers Solution, Lactated 1,000 ML IVC SCH ×2 (20:30→21:06)
[2017-04-17] MEDS ORDERED: Ketorolac 30 MG/ML VIAL IVP ONE (20:45)
[2017-04-17] MEDS ORDERED: Ringers Solution, Lactated 500 ML IV SCH (21:00)
[2017-04-17] MEDS ORDERED: Dextrose Gel 15 GM/37.5 ML TUBE PO PRN (21:06)
[2017-04-17] MEDS ORDERED: Naloxone 0.4 MG/ML INJ IVP PRN (21:06)
[2017-04-17] MEDS ORDERED: D5% in Water 1,000 ML IVC PRN (21:06)
[2017-04-17] MEDS ORDERED: *HR* HYDROcodone/Acet 10/325 mg TABLET PO PRN (21:06)
[2017-04-17] MEDS ORDERED: Acetaminophen 325 MG TABLET PO PRN (21:06)
[2017-04-17] MEDS ORDERED: Ondansetron 4 MG/2 ML VIAL IVP PRN (21:06)
[2017-04-17] MEDS ORDERED: *HR* Dextrose 50 % in Water (Syg) 50 ML SYRINGE IVP PRN (21:06)
--- NOTE | 2017-04-17 21:19 | Anesthesia Evaluation Post Op ---
Date of Encounter: 04/17/17 Time of Encounter: 21:19 - Vital Signs Vital Signs: Last Vital Signs Temp 97.3 F L 04/17/17 20:55 Pulse 90 04/17/17 20:55 Resp 20 04/17/17 20:55 BP 150/82 04/17/17 20:55 Pulse Ox 95 04/17/17 20:55 - Lungs Lungs: Clear Ascult./Percussion - Airway Airway: Non-obstructed - Cardiovascular Regular Rate - Mental Status Mental Status: Alert & Oriented, Answers Appropriately - Pain Pain Scale: 4 - Nausea Vomiting Nausea Vomiting: Not Present - Hydration Hydration: NPO - Discharge PostOp Status: Transfer Patient to floor
[2017-04-17] MEDS: *HR* HYDROmorphone (PF) 1 MG/ML SYRINGE IVP PRN (22:12)
[2017-04-18] MEDS: *HR* HYDROmorphone (PF) 1 MG/ML SYRINGE IVP PRN ×4 (00:18→08:05)
[2017-04-18] MEDS: *HR* Metformin 500 MG TABLET PO SCH ×2 (02:35→08:07)
[2017-04-18] MEDS: Insulin LISPRO 300 UNITS/3 ML VIAL SQ SCH ×4 (03:01→12:31)
[2017-04-18 03:17] LABS: Basophils % 0.1 %; Hematocrit 39.4 % (37.5-50.1); Hemoglobin 13.4 g/dL (12.9-16.9); Immature Granulocytes % 0.3 % (0-4); Lymphocytes # 0.8 K/mcL (0.6-4.6); Lymphocytes % 6.6 %; Mean Corpuscular Hemoglobin 30.8 pg (28.0-33.3); Mean Corpuscular Volume 90.6 fL (83.0-100.0); Mean Platelet Volume 10.1 fL (9.4-12.4); Monocytes # 0.4 K/mcL (0.0-1.3); Monocytes % 3.1 %; Neutrophils # 10.6 K/mcL (1.6-8.9); Platelet Count 243 K/mcL (140-400); Red Blood Count 4.35 M/mcL (4.19-5.50); Red Cell Distribution Width 12.3 % (11.5-14.5); Segmented Neutrophils % 89.9 %
[2017-04-18 03:33] LABS: BUN/Creatinine Ratio 14 (6-26); Blood Urea Nitrogen 11 mg/dL (6-20); Calcium 9.5 mg/dL (8.6-10.3); Carbon Dioxide 25 mEq/L (23-29); Chloride 109 mEq/L (98-107); Glucose 182 mg/dL (70-105); Osmolality,Calculated 286 (280-300); Potassium 4.7 mEq/L (3.5-5.1); Sodium 136 mEq/L (136-145); eGFR For African Americans > 60 (> 60); eGFR For Non-African Americans > 60 (> 60)
[2017-04-18] MEDS ORDERED: BuPROPion XL (24 HR) 150 MG TABLET PO SCH (09:00)
[2017-04-18] MEDS ORDERED: Nicotine 21 MG PATCH.TD24 TD SCH (09:00)
--- NOTE | 2017-04-18 11:47 | General Surgery Progress Note ---
Date of Encounter: 04/18/17 Time of Encounter: 11:41 Subjective Patient reports: still having pain Narrative: General Surgery - POD #1 Patient still complaining of right upper quadrant abdominal pain but describes the pain as different from preop. Afebrile, currently 97.9, pulse 74, respirations 16, blood pressure 116/72. Patient tolerating diet; no nausea vomiting Lungs: Clear bilaterally; no obvious abdominal pain with deep inspiration Cardiac: Regular rate, no appreciable murmurs. No tachycardia Abdomen: Soft, tender in the right upper quadrant along the subcostal margin. No obvious intra-abdominal masses, no rebound. Port sites clean and dry; no associated erythema, edema, or swelling. Active bowel sounds Laboratories: White count 11.8 (preoperatively 12.4); hemoglobin stable at 13.4 , hematocrit 39.4. Bladder count 243,000 Neutrophils increased to 10.6 but likely response to surgery Electrolytes, BUN, creatinine stable and within normal limits Impression: 41 year-old with abrupt onset of epigastric and right upper quadrant abdominal pain. Radiologic findings suggestive of acute cholecystitis with pericholecystic fluid evident on the imaging. No stones were visualized. Status post laparoscopic cholecystectomy last evening. Intraoperative findings included pericholecystic fluid consistent with acute cholecystitis. There were no obvious stones. The patient is c/o post op right subcostal pain - most likely due to surgery completed thru three subcostal incisions (port sites) The patient is disabled with a history chronic back pain - he admits to using hydrocodone/acetaminophen 10/325 for the past 8 years for his back pain Postoperative status acceptable for discharge home. Discussed with Dr Tobin Instructions Follow up office Thursday. 04/27/2017 Regular diet activities as tolerated, lifting limited to less than 20# patient may shower, wash incision with soap and water patient may resume home meds Objective Vital Signs - Last 8 Hours Temp Pulse Resp BP Pulse Ox 04/18/17 07:09 97.9 F 74 16 116/72 97 04/18/17 04:59 98.0 F 88 16 111/69 96 Intake and Output 04/17/17 04/18/17 04/18/17 23:59 07:59 15:59 Intake Total 600 / 600 480 / 480 Output Total 150 / 150 Balance 450 / 450 480 / 480 Intake: Oral 600 / 600 480 / 480 Output: Estimated Blood Loss 150 / 150 Other: Meal Breakfast Percent of Meal Consumed 100% # Voids 2 1 Blood Glucose* 202 152 - Labs 04/18/17 02:50 04/18/17 02:50 Diabetes panel 04/18/17 Range/Units 02:50 Sodium 136 (136-145) mEq/L Potassium 4.7 (3.5-5.1) mEq/L Chloride 109 H (98-107) mEq/L Carbon Dioxide 25 (23-29) mEq/L BUN 11 (6-20) mg/dL Creatinine 0.76 (0.70-1.30) mg/dL Glucose 182 H (70-105) mg/dL Calcium 9.5 (8.6-10.3) mg/dL Calcium panel 04/18/17 Range/Units 02:50 Calcium 9.5 (8.6-10.3) mg/dL Pituitary panel 04/18/17 Range/Units 02:50 Sodium 136 (136-145) mEq/L Potassium 4.7 (3.5-5.1) mEq/L Chloride 109 H (98-107) mEq/L Carbon Dioxide 25 (23-29) mEq/L BUN 11 (6-20) mg/dL Creatinine 0.76 (0.70-1.30) mg/dL Glucose 182 H (70-105) mg/dL Calcium 9.5 (8.6-10.3) mg/dL Adrenal panel 04/18/17 Range/Units 02:50 Sodium 136 (136-145) mEq/L Potassium 4.7 (3.5-5.1) mEq/L Chloride 109 H (98-107) mEq/L Carbon Dioxide 25 (23-29) mEq/L BUN 11 (6-20) mg/dL Creatinine 0.76 (0.70-1.30) mg/dL Glucose 182 H (70-105) mg/dL Calcium 9.5 (8.6-10.3) mg/dL - VTE Documentation of Mechanical Device: Intermittent pneumatic compression device Consult Discharge Plan - Plan Referrals: Dalton Marte MD [Primary Care Provider] -
--- NOTE | 2017-04-18 11:54 | Discharge Summary ---
Date of Encounter: 04/18/17 Time of Encounter: 11:52 - Discharge Diagnosis (1) Acalculous cholecystitis Priority: Primary Status: Acute (2) Diabetes mellitus Priority: Secondary Status: Chronic Qualifiers: Diabetes mellitus type: type 2 Diabetes mellitus complication status: without complication Diabetes mellitus terminal worker insulin use: without shelter use Qualified Code(s): E11.9 - Type 2 diabetes mellitus without complications (3) HTN (hypertension) Priority: Secondary Status: Chronic Qualifiers: Hypertension type: essential hypertension Qualified Code(s): I10 - Essential (primary) hypertension - Discharge Medications Prescriptions: Oxycodone HCl/Acetaminophen [Percocet 5-325 mg Tablet] 1 each PO Q6H PRN #12 tablet PRN Reason: Abdominal pain Home Medications: Atorvastatin [Lipitor] 40 mg PO HS 04/16/17 [History] BuPROPion XL (24 HR) [Wellbutrin Xl] 150 mg PO DAILY 04/16/17 [History] Docusate [Colace] 100 mg PO BID 04/16/17 [History] HYDROcodone/Acet 10/325 mg [Hopewell 10-325 mg] 1 tab PO QID 04/16/17 [History] Lisinopril-HCTZ 10-12.5 [Prinzide 10-12.5] 1 tab PO DAILY 04/16/17 [History] Meloxicam 1 tab PO DAILY 04/16/17 [History] Metformin HCl [Glucophage] 1,000 mg PO BID 04/16/17 [History] Omeprazole [PriLOSEC] 20 mg PO BIDAC 04/16/17 [History] Oxycodone HCl/Acetaminophen [Percocet 5-325 mg Tablet] 1 each PO Q6H PRN #12 tablet 04/18/17 [Rx] Allergies/Adverse Reactions: 3 Allergy/AdvReac Type Severity Reaction Status Date / Time No Known Allergies Allergy Verified 04/16/17 06:43 Procedures/tests Complete & Pending: Procedures Performed prior 72 hours Category Date Time Status NM hepatobiliary [NM] Routine Exams 04/17/17 10:00 Completed Date of admission: 04/16/17 13:24 Primary care physician: Dalton Marte MD - Patient Status Disposition: Home, Self-Care Condition: Fair Functional capacity at discharge: independent ambulation Overall status at discharge: patient is progressing back to baseline - Discharge Instructions Instructions: Diabetes Mellitus Type 2 in Adults (DC), Laparoscopic Cholecystectomy (DC), Chronic Hypertension (DC) Follow Up With: Dalton Marte MD [Primary Care Provider] - (Web requested on 04/18/17) Amari Rodriguez MD [Non-Partnered Physician] - (Unit to make appointment Thursday and call patient to make aware. Notification sent to corrections unit supervisor on . 04/27/17 @ 2:10pm made on 04/20/17 and message was left for patient with date & time.) Additional Instructions: Follow-up with your primary care physician in 2 weeks of discharge. Follow-up within Gen. surgery in one week. Follow up office on Thursday. 04/27/2017. You will be contacted with appointment time. Regular diet activities as tolerated, lifting limited to less than 20# patient may shower, wash incision with soap and water patient may resume home meds - Diet and Activity Activity: increase activity as tolerated Diet: diabetic diet, low fat, low cholesterol, low salt diet Hospital course: Mr. Owen is a 41 year old male with past medical history significant for hypertension and diabetes who presented to the hospital with sudden onset epigastric pain radiating to the right upper quadrant. He had a CT scan of the abdomen which showed thickening of the gallbladder wall with pericholecystic fluid. He was admitted to the medical service and received IV antibiotics. General surgery was consulted and he had a laparoscopic cholecystectomy. He tolerated the procedure well. He reported increasing pain related to surgery and will be prescribed a three day course of Percocet as needed for abdominal pain. Patient had an uncomplicated postoperative course and will be discharged home. He was advised to follow-up with his primary care physician and general surgeon within 1 week of discharge. Time spent discussing smoking cessation with patient: 3 to 10 minutes - Time Spent with Patient Total time spent providing and/or coordinating discharge services: Less than 30 minutes - Constitutional Vitals: Temp Pulse Resp BP Pulse Ox 97.9 F 74 16 116/72 97 04/18/17 07:09 04/18/17 07:09 04/18/17 07:09 04/18/17 07:09 04/18/17 07:09 General appearance: Present: cooperative, A&O X 3, pleasant, no acute distress, answers questions appropriately - Respiratory Respiratory exam: Present: CTAB. Absent: accessory muscle use, rales, rhonchi, wheezes - Cardiovascular Cardiovascular exam: Present: RRR, +S1, +S2. Absent: diastolic murmur, gallop, rubs, systolic murmur - GI/Abdominal GI/Abdominal exam: Present: normal bowel sounds, soft, no peritoneal signs. Absent: distended, tenderness - Extremities Exam Extremities exam: Present: warm, radial pulses palpable and symmetrical. Absent : calf tenderness, cyanotic, pedal edema - Skin Skin exam: Present: dry, intact - VTE Documentation of Mechanical Device: Intermittent pneumatic compression device
[2017-04-18 12:14] VITALS: BP 124/76
== END 2017-04-18 12:50 | disposition home or self-care (01) | DRG 263 ==
LOC: 3NENU 06:42 → EMEROO 06:42 → 3NENU 11:47 → SUATTDRO 13:24
PROVIDERS: ADMIT Nurse Practitioner Acute Care; ATTEND Internal Medicine